=== PATIENT | female | born 1940 | race Caucasian/White ===

== ENCOUNTER 2021-05-23 13:26 | Inpatient (IN) | payer MEDICARE, OTHER, SELFPAY ==
[2021-05-23] VITALS (24 sets, daily range): BP systolic 118–143; BP diastolic 41–97; PULSE 60–116; RESP 15–24; TEMP 36.6; O2SAT 93–99; BMI 28.6
--- NOTE | ~2021-05-23 | XR_ITS ---
EXAMINATION: XR chest 1V DATE: 05/23/2021 14:04 INDICATION: Transient alteration of awareness. TECHNIQUE: A single frontal view of the chest was obtained. COMPARISON: None. FINDINGS: There are airspace opacities at left lung base. There is a diffuse interstitial pattern in the lungs. There are small pleural effusions, left worse than right. No pneumothorax. Cardiomegaly is noted. There are surgical clips overlying left chest. There are multiple left rib fractures. IMPRESSION: 1. Airspace opacities at left lung base, consistent with atelectasis versus pneumonia. 2. Diffuse interstitial pattern in the lungs, consistent with mild pulmonary edema versus chronic gaviota g disease. 3. Small pleural effusions. 4. Cardiomegaly. 5. Age-indeterminate left rib fractures. Reviewed, dictated and finalized at location A. IMPRESSION: 1. Airspace opacities at left lung base, consistent with atelectasis versus pne umonia. 2. Diffuse interstitial pattern in the lungs, consistent with mild pulmonary ed minda versus chronic lung disease. 3. Small pleural effusions. 4. Cardiomegaly. 5. Age-indeterminate left rib fractures.
--- NOTE | ~2021-05-23 | CT_ITS ---
EXAMINATION: CT brain wo con INDICATION: Slurred speech COMPARISON: None TECHNIQUE: Standard unenhanced head CT. The dose-length product (DLP) was 529.67 mGy-cm. The mA was a djusted according to patient size. Iterative reconstruction technique was employed. FINDINGS: There is no acute intraparenchymal hemorrhage. No evidence of mass lesion. No evidence of a cute infarction. There is mild periventricular and subcortical hypodensity probably related to small vessel ischemic disease. There is mild prominence of the sulci and ventricles related to cerebral atr ophy. Intracranial calcified cerebral atherosclerosis is noted. There are no extra-axial collections. There is no mass effect or midline shift. Changes in the globes are likely from ocular lens surgery. The visualized sinuses and mastoid air cells are well aerated. There are multiple lytic lesions invo lving the skull, the skull base on the right, and portions of the visualized C1 ring posteriorly on t he right. IMPRESSION: 1. No acute intracranial abnormality. 2. Age related findings. 3. Multiple lytic lesions involving the skull, skull base and visualized C1 ring, consistent with mal ignancy. These findings were discussed with Dr. Saucedo in the Emergency Department at 1415 hours on 1. Reviewed, dictated and finalized at location A. IMPRESSION: 1. No acute intracranial abnormality. 2. Age related findings. 3. Multiple lytic lesions involving the skull, skull base and visualized C1 rin g, consistent with malignancy. These findings were discussed with Dr. Saucedo in the Emergency Department at 1 415 hours on 05/23/2021.
--- NOTE | ~2021-05-23 | MR_ITS ---
EXAMINATION: MR brain/brain stem wo/w con EXAM DATE: 05/24/2021 18:22 INDICATION: Stroke like symptoms, met breast cancer. Right facial droop. TECHNIQUE: Magnetic resonance imaging (MRI) of the brain/brain stem obtained without contrast. Sagit mary T1, axial diffusion, gradient echo (T2*), T1, T2, FLAIR sequences obtained. Patient was then inj ected with 12 cc intravenous Multihance contrast. Axial and coronal postcontrast T1 weighted sequence s obtained. Correlation is made to head CT 05/23/2021. FINDINGS: There is punctate focus of increased diffusion weighted signal in the right caudate head, c ould be an acute or subacute infarction. This is demonstrated some signal drop on the ADC map, but wo uld be expected to produce left-sided symptoms. There is also a 9 mm region of abnormal signal in the right side of the frontotemporal calvarium, possible osseous metastatic lesion. No intraparenchymal brain mass, acute intracranial hemorrhage or extra-axial collection. No regions of abnormal enhanceme nt. Bilateral cataract surgery. Mild microangiopathy and cerebral atrophy. Flow voids are seen in the cerebral arteries on the T2 weighted sequences consistent with their expected patency. No obstructiv e hydrocephalus. IMPRESSION: 1. Punctate focus of signal abnormality right caudate head, possible acute or subacute infarction. 2. Right calvarial lesion which is possible osseous metastatic disease. 3. Mild age-related intracranial findings. Reviewed, dictated and finalized at location B.
--- NOTE | 2021-05-23 13:47 | ECG_ITS ---
Measurements Intervals [place] Rate: 87 P: [place]: 0 QRS: -9 QRSD: 93 T: 11 QT: 364 QTc: 439 Interpretive Statements ATRIAL FIBRILLATION NONSPECIFIC ST & T-WAVE ABNORMALITY- ANTEROLAT/HIGH LAT LEADS BASELINE ARTIFACT- I, II, AVR, AVL, AVF, V1 ABNORMAL ECG Electronically Signed On 05-23-2021 14:16:07 CDT by Matthew Renee D.O.
--- NOTE | 2021-05-23 13:49 | ED.NEUROSD ---
HPI - Neuro Symptoms/Deficit General Chief Complaint: Neuro Symptoms/Deficit Stated Complaint: ?TIA Time Seen by Provider: 05/23/21 13:47 Source: patient Mode of arrival: EMS Limitations: no limitations History of Present Illness HPI Narrative: Patient is a 80-year-old female complaining of slurred speech and right-sided facial droop, lasted for approximately 1 to 2 minutes, now resolved, started prior to arrival. Patient states she has had a history of multiple TIAs in the past due to her atrial fib. Patient is on Eliquis for atrial fib. Patient denies any headache, dizziness, focal weakness or numbness. Patient denies any chest pain, shortness of breath, abdominal pain, nausea, vomiting, fever or chills. Related Data Home Medications Medication Instructions Recorded Confirmed Caltrate + D3 Plus Minerals 400 unit PO DAILY 05/23/21 apixaban [Eliquis] 5 mg PO BID 05/23/21 bimatoprost [Lumigan] 1 drp EACH EYE DAILY 05/23/21 diltiazem HCl [Cardizem] 240 mg PO DAILY 05/23/21 gabapentin 300 mg PO TID 05/23/21 letrozole [Femara] 2.5 mg PO DAILY 05/23/21 levothyroxine [Synthroid] 112 mcg PO DAILY 05/23/21 losartan 75 mg PO BID 05/23/21 metoprolol tartrate [Lopressor] 50 mg PO Q12H 05/23/21 Allergies Allergy/AdvReac Type Severity Reaction Status Date / Time aspirin Allergy Unknown Verified 05/23/21 15:10 levofloxacin Allergy Unknown Verified 05/23/21 15:10 Sulfa (Sulfonamide Allergy Unknown Verified 05/23/21 15:09 Antibiotics) Review of Systems Review of Systems: All systems reviewed & are unremarkable except as noted in HPI and below Constitutional: Constitutional: Denies body ache(s), Denies chills, Denies excessive sweating, Denies fatigue, Denies fever(s), Denies headache(s), Denies lethargy, Denies malaise, Denies weakness and Denies weight loss Eyes: Eyes: Denies blurry vision, Denies change in vision and Denies loss of vision ENT: Denies dizziness, Denies ear discharge, Denies headache(s), Denies lip swelling, Denies epistaxis, Denies nasal congestion, Denies neck pain, Denies throat swelling and Denies tongue swelling Cardiovascular: Cardiovascular: Denies chest pain, Denies chest pain at rest, Denies chest pain with activity, Denies diaphoresis, Denies rapid heart rate, Denies edema, Denies irregular heart rhythm, Denies lightheadedness, Denies palpitations, Denies dyspnea and Denies dyspnea on exertion Respiratory: Respiratory: Denies chest congestion, Denies cough, Denies hemoptysis, Denies dyspnea and Denies dyspnea on exertion Gastrointestinal: Gastrointestinal: Denies abdominal pain, Denies melena, Denies hematochezia, Denies diarrhea, Denies nausea, Denies vomiting and Denies hematemesis Musculoskeletal: Musculoskeletal: Denies abnormal gait, Denies deformity, Denies joint swelling, Denies limited range of motion, Denies neck pain and Denies numbness Neurologic: Denies Abnormal speech present, Denies abnormal gait, Denies confusion, Denies dizziness, Denies headache(s), Denies focal weakness, Denies loss of vision, Denies numbness, Denies Other visual disturbances, Denies Sensory deficit (Neuro) and Denies weakness Psychiatric: Psychiatric: Denies confusion, Denies depression, Denies auditory hallucinations, Denies homicidal ideation and Denies suicidal ideation Endocrine: Endocrine: Denies cold intolerance, Denies excessive sweating, Denies fatigue, Denies heat intolerance and Denies palpitations Hematologic/Lymphatic: Hematologic/Lymphatic: Denies easy bleeding and Denies easy bruising Allergic/Immunologic: Allergic/Immunologic: Denies lip swelling, Denies throat swelling and Denies tongue swelling PMFSH Comments Past medical history: Hypertension, atrial fib, TIA, hyperlipidemia Family history: Hypertension Social history: Non-smoker, no EtOH use, lives at home with her partner Exam Const: General: cooperative, healthy appearing, comfortable, no acute distress, well developed, alert and awake;
[2021-05-23 14:45] LABS: Basophils Absolute Auto 0.1 K/mm3 (0.0-0.1); Basophils Percent Auto 0.9 % (0.2-1.2); Eosinophils Absolute Auto 0.1 K/mm3 (0-0.3); Hematocrit 32.1 % (37.0-47.0); Hemoglobin 9.7 g/dL (12.0-15.0); Immature Granulocyte Absolute 0.11 K/mm3 (0.00-0.031); Immature Granulocyte Percent A 1.6 % (0-0.5); Lymphocytes Absolute Auto 1.44 K/mm3 (0.9-3.2); Lymphocytes Percent Auto 20.7 % (18.3-44.2); Mean Corpuscular HGB Conc 30.2 g/dl (32-36); Mean Corpuscular Hemoglobin 24.2 pg (26-34); Mean Platelet Volume 9.4 fl (7.4-10.4); Monocytes Absolute Auto 0.8 K/mm3 (0.1-0.6); Monocytes Percent Auto 10.9 % (2.6-8.5); Neutrophils Absolute Auto 4.5 K/mm3 (1.3-6.7); Neutrophils Percent Auto 63.9 % (45.5-73.1); Platelet Count Result 246 k/mm3 (150-375); Red Blood Count 4.01 M/mm3 (4.2-5.4); Red Cell Distribution Width 17.8 % (11.5-14.5)
[2021-05-23 14:59] LABS: INR 2.1; Prothrombin Time 23.3 Seconds (11.1-14.7)
[2021-05-23 15:07] LABS: Anion Gap 8 mmol/L (8-16); Blood Urea Nitrogen 8 mg/dL (7-17); Calcium 8.5 mg/dL (8.4-10.2); Carbon Dioxide 23 mmol/L (22-30); Chloride 105 mmol/L (98-107); Estimated Glomerular Filt Rate > 60; Glucose 91 mg/dL (65-110); Potassium 3.5 mmol/L (3.4-5.0); Sodium 136 mmol/L (137-145)
[2021-05-23 15:22] LABS: Troponin I 0.069 ng/mL (0.000-0.034)
--- NOTE | 2021-05-23 17:15 | PM.IMHP ---
H&P: HPI History of Present Illness Date/Time: 05/23/21 17:15 this is a 80-year-old female patient who has a history of TIAs with atrial fibrillation. The patient was brought to the emergency room for complaints of slurred speech and right-sided facial droop. The patient was hospitalized at [facility] approximately 1 month ago and had a full workup. The patient stated that she had an echo and an MRI she believes last month. Who the patient's symptoms have totally resolved and she no longer has any focal weakness or numbness. The daughter is at the bedside. Chest x-ray was read as airspace opacities at the left lung base, consistent with atelectasis versus pneumonia. Diffuse interstitial pattern and the lungs, consistent with mild pulmonary edema versus chronic lung disease. Small pleural effusion. Cardiomegaly. Age indeterminate left rib fractures. Head CT was read as no acute intracranial abnormality. Age-related findings. Multiple lytic lesions including the skull, skull base and visualized C1 ring, consistent with malignancy. The patient has a history having breast cancer and has been receiving chemotherapy. She has had a lumpectomy in multiple lymph nodes removed. We discussed the lytic lesions in the patient stated she was not aware of this and she recently had a bone scan at [facility] in [place]. I did consult Neurology and will continue with her anticoagulation. The patient is being admitted to observation status on the date of service of 05/23/2020 Chief Complaint: Slurred speech Review of Systems Review of Systems: All systems reviewed & are unremarkable except as noted in HPI and below Constitutional: Constitutional: Reports as per HPI and Reports no additional constitutional complaints Eyes: Eyes: Reports as per HPI and Reports no additional eye complaints ENT: Reports system reviewed and no additional complaints, except as documented and Reports Normal hearing present Cardiovascular: Cardiovascular: Reports no additional cardiovascular complaints Respiratory: Respiratory: Reports no additional respiratory complaints and Reports no additional respiratory complaints Gastrointestinal: Gastrointestinal: Reports as per HPI and Reports no additional gastrointestinal complaints Musculoskeletal: Musculoskeletal: Reports no additional musculoskeletal complaints Integumentary/Breasts: Skin/Breast: Reports system reviewed and no additional complaints, except as docu and Reports as per HPI Neurologic: Reports system reviewed and no additional complaints, except as documented, Reports as per HPI and Reports Normal hearing present Psychiatric: Psychiatric: Reports no additional psychiatric complaints and Reports as per HPI Endocrine: Endocrine: Reports no additional endocrine complaints Hematologic/Lymphatic: Hematologic/Lymphatic: Reports no additional hematologic/lymphatic complaints Allergic/Immunologic: Allergic/Immunologic: Reports no additional allergic/immunologic complaints [facility] Past Medical History Medical History (Updated 05/23/21 @ 17:32 by Mery Kimbrough NP) Atrial fibrillation Chemotherapy-induced neuropathy Glaucoma HTN (hypertension) with goal to be determined Hypothyroidism Metastatic breast cancer TIA (transient ischemic attack) Surgical History Surgical History (Updated 05/23/21 @ 17:35 by Mery Kimbrough NP) H/O colonoscopy with polypectomy H/O lumpectomy Left breast H/O: hysterectomy History of lymph node dissection of axilla Left side Hx of cholecystectomy S/P tonsillectomy and adenoidectomy Family History Family History (Updated 05/23/21 @ 17:39 by Mery Kimbrough NP) Mother Uterine cancer Father Acute myocardial infarction Meds Home Medications and Allergies Home Medications Medication Instructions Recorded Confirmed Type Caltrate + D3 Plus Minerals 400 unit PO DAILY 05/23/21 History apixaban [Eliquis] 5 mg PO BID 05/23/21 H
[2021-05-23 19:45] LABS: Troponin I 0.059 ng/mL (0.000-0.034)
--- NOTE | 2021-05-23 20:14 | ADMGEN ---
This patient, Lyndasy Ybarra, was admitted to IMU Room 201-01 on 05/23/21 at 1999. Patient/family oriented to hospital policies and general routines including ID bracelet, bed and alarms, visiting hours, pain management, procedures, bathroom and other care routines, personal items, smoking policy, room service/diet, and visiting hours. Information on how to activate the Rapid Response Team has been discussed. Patient/Family are encouraged to report perceived risks to care and to ask questions if they do not understand what they are told or what they should do.
[2021-05-23] MEDS: APIXABAN 5 MG TABLET PO (23:32)
[2021-05-23] MEDS: GABAPENTIN 300 MG CAPSULE PO (23:32)
[2021-05-23] MEDS: METOPROLOL TARTRATE 50 MG TAB PO (23:33)
[2021-05-23] MEDS: LOSARTAN POTASSIUM 50 MG TABLET PO (23:36)
[2021-05-24] VITALS (16 sets, daily range): BP systolic 108–134; BP diastolic 52–84; PULSE 57–133; RESP 18–20; TEMP 36.2–36.6; O2SAT 94–96; BMI 28.6
--- NOTE | 2021-05-24 | ECHOL_ITS ---
Patient Info Name: Lyndsay Ybarra Age: 80 years : 1940 Gender: Female Ht: 59 in Wt: 141 lbs BSA: 1.65 m2 HR: 98 bpm BP: 110 / 63 mmHg Heart Rhythm: Atrial Fibrillation Technical Quality: Good Exam Date: 05/24/2021 3:26 PM Exam Location: [facility] Pulmonary Exam Room: 201 Patient Status: Inpatient Admit Date: 05/24/2021 Staff Ordering Physician: Nichole Fowler PA-C Certified Health Education Specialist: Ayla Long RDCS Attending Provider: Nichole Fowler PA-C Referring Physician: Malcolm ELLIOTT; Exam Type: CA echo limited Study Info Indications - eval wall motion abnormality Limited two-dimensional transthoracic echocardiogram is performed. Summary 1. Left ventricular chamber dimension is normal. 2. Left ventricular systolic function is normal, estimated at 60-65%. 3. There is mildly increased left ventricular wall thickness. 4. Left atrial chamber dimension is moderately enlarged. 5. There is mild aortic valve sclerosis. Left Ventricle Left ventricular chamber dimension is normal. Left ventricular systolic function is normal, estimated at 60-65%. There is mildly increased left ventricular wall thickness. Right Ventricle Right ventricular chamber dimension is normal. Right ventricular systolic function is normal. Left Atria Left atrial chamber dimension is moderately enlarged. Right Atria Right atrial chamber dimension is normal. Aortic Valve The aortic valve is trileaflet. There is mild aortic valve sclerosis. Pulmonic Valve The pulmonic valve is normal. Mitral Valve The mitral valve has normal leaflets. Tricuspid Valve The tricuspid valve leaflets are normal. Pericardium/Pleural The pericardium appears normal. There is trivial pericardial effusion. Aorta The aortic root size at the sinus of Valsalva is normal. Ventricles Name Value Normal LV Dimensions 2D/MM IVS Diastolic Thickness (2D) 0.9 cm 0.6-1.0 LVID Diastole (2D) 4.6 cm 3.8-5.2 LVIW Diastolic Thickness (2D) 1.0 cm 0.6-0.9 LVID Systole (2D) 3.0 cm 2.2-3.5 LV Mass (2D Cubed) 155.65 g 67.00-162.00 LV Mass Index (2D Cubed) 94 g/m2 43-95 Relative Wall Thickness (2D) 0.44 LV Fractional Shortening/Ejection Fraction 2D/MM LV Fractional Shortening (2D) 35 % 27-45 LV EF (2D Teicholz) 64 % 54-74 LV Diastolic Volume (4C MOD) 75 ml LV EF (4C MOD) 64 % LV Diastolic Volume (2C MOD) 54 ml LV EF (2C MOD) 67 % LV Diastolic Volume (BP MOD) 64 ml 46-106 LV Diastolic Volume Index (BP MOD) 39 ml/m2 29-61 LV Systolic Volume (BP MOD) 23 ml 14-42 LV Systolic Volume Index (BP MOD) 14 ml/m2 8-24 LV EF (BP MOD) 65 % 54-74 LV Diastolic Length (4C) 7.0 cm LV Systolic Length (4C) 6.3 cm
[2021-05-24] MEDS: ACETAMINOPHEN 325 MG TABLET 650 MG PO ×2 (00:23→20:48)
[2021-05-24 00:24] LABS: Troponin I 0.085 ng/mL (0.000-0.034)
[2021-05-24 05:15] LABS: Basophils Absolute Auto 0.1 K/mm3 (0.0-0.1); Basophils Percent Auto 0.8 % (0.2-1.2); Eosinophils Absolute Auto 0.2 K/mm3 (0-0.3); Eosinophils Percent Auto 3.7 % (0-4.4); Hematocrit 29.2 % (37.0-47.0); Hemoglobin 8.8 g/dL (12.0-15.0); Immature Granulocyte Absolute 0.08 K/mm3 (0.00-0.031); Immature Granulocyte Percent A 1.3 % (0-0.5); Lymphocytes Absolute Auto 1.64 K/mm3 (0.9-3.2); Lymphocytes Percent Auto 27.4 % (18.3-44.2); Mean Corpuscular HGB Conc 30.1 g/dl (32-36); Mean Corpuscular Hemoglobin 23.7 pg (26-34); Mean Corpuscular Volume 78.7 fl (80-100); Mean Platelet Volume 9.8 fl (7.4-10.4); Monocytes Absolute Auto 0.8 K/mm3 (0.1-0.6); Monocytes Percent Auto 13.4 % (2.6-8.5); Neutrophils Absolute Auto 3.2 K/mm3 (1.3-6.7); Neutrophils Percent Auto 53.4 % (45.5-73.1); Platelet Count Result 217 k/mm3 (150-375); Red Blood Count 3.71 M/mm3 (4.2-5.4); Red Cell Distribution Width 17.6 % (11.5-14.5)
[2021-05-24 05:40] LABS: Magnesium 1.5 mg/dL (1.6-2.3)
[2021-05-24] MEDS: LEVOTHYROXINE SODIUM 112 MCG TABLET PO (06:23)
[2021-05-24 08:15] LABS: Free T4 Free Thyroxine Reflex 1.47 ng/dL (0.78-2.19)
[2021-05-24 08:53] LABS: Anion Gap 7 mmol/L (8-16); Blood Urea Nitrogen 8 mg/dL (7-17); Calcium 8.5 mg/dL (8.4-10.2); Carbon Dioxide 22 mmol/L (22-30); Chloride 105 mmol/L (98-107); Estimated Glomerular Filt Rate > 60; Glucose 79 mg/dL (65-110); Potassium 3.5 mmol/L (3.4-5.0); Sodium 134 mmol/L (137-145)
[2021-05-24 09:01] LABS: Iron 19 ug/dL (37-170)
[2021-05-24 09:03] LABS: Transferrin 193 mg/dL (206-381)
[2021-05-24 09:10] LABS: Percent Iron Saturation 7 % (20-50)
[2021-05-24] MEDS: ONDANSETRON HCL ODT 4 MG TABLET PO (09:35)
[2021-05-24] MEDS: APIXABAN 5 MG TABLET PO (09:50)
[2021-05-24] MEDS: GABAPENTIN 300 MG CAPSULE PO ×3 (09:51→19:01)
[2021-05-24] MEDS: LOSARTAN POTASSIUM 50 MG TABLET PO ×2 (09:52→19:01)
[2021-05-24] MEDS: METOPROLOL TARTRATE 50 MG TAB PO ×2 (09:53→20:46)
[2021-05-24] MEDS: LETROZOLE (*CHEMO) 2.5 MG TABLET PO (09:58)
[2021-05-24 10:03] LABS: Folic Acid 5.5 ng/mL (2.76->20)
--- NOTE | 2021-05-24 11:03 | PM.IMPN ---
Progress Note: A&P Assessment and Plan (1) TIA (transient ischemic attack): Code(s): G45.9 - Transient cerebral ischemic attack, unspecified Status: Chronic Assessment and Plan: Patient is a 80-year-old woman with a history of metastatic breast cancer with bony lesions, who presented emergency room with right-sided facial droop and slurred speech. Patient had similar symptoms 1 month ago and was seen at [facility] in [place]. While she was there she was found to have atrial fibrillation and started on anticoagulation with Eliquis. They assume the atrial fibrillation caused her TIA and she did not have any residual defects. She was discharged home to continue taking Eliquis. She states she was not started on aspirin because aspirin ?irritates her stomach?. She does not take any an acids. Patient states this episode of right-sided facial droop and slurred speech lasted 5-10 minutes and resolved. She has not had any more recurrence of these episodes. I plan to start her on aspirin 81 mg to prevent further TIA Right now I will not start aspirin because she has iron deficiency anemia and was told she had some maroon-colored stool this morning. Will proceed with workup for GI bleeding I am trying to obtain records from [facility] with her results from her hospitalization 1 month ago. Otherwise at this time she does not wish to have further workup repeated since her symptoms have resolved. Neurology was consulted and I appreciate their input. PT OT ordered Continue monitoring neuro symptoms. (2) Atrial fibrillation: Code(s): I48.91 - Unspecified atrial fibrillation Status: Chronic Assessment and Plan: Patient's heart rate has been in RVR this morning because her diltiazem came a little late. After taking her medication it is been in the 100s to 110s Eliquis will be placed on hold due to signs of GI bleeding and iron deficiency anemia Will order SCDs at this time Continue rate control Consider cardiology consult if she continues to be in AFib RVR needs further adjustments Continue monitoring (3) Elevated troponin: Code(s): R77.8 - Other specified abnormalities of plasma proteins Status: Acute Assessment and Plan: Troponins are elevating at 0.069 up to 0.110. This could be secondary to AFib RVR verses TIA. She denies any chest pain, shortness of breath, diaphoresis, or other symptoms since coming into the hospital. 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 (4) Anemia: Code(s): D64.9 - Anemia, unspecified Status: Acute Assessment and Plan: Iron deficiency anemia on labs, microcytic anemia with Hgb 8.8/29.2%. Found to have maroon stools this morning by staff Concerns for GI bleeding from starting eliquis recently Will start Pantoprozole 40 mg Q12hrs GI consulted IV Venofer ordered 300 mg x3 Continue monitoring H&H Q8hrs to ensure she does not need a transfusion. She has required a transfusion within the last 1 month by her oncologist. Keep Hgb > 7. (5) Metastatic breast cancer: Code(s): C50.919 - Malignant neoplasm of unspecified site of unspecified female breast Status: Chronic Assessment and Plan: The patient sees an oncologist at [facility] in [place]. She is aware of metastatic breast cancer with bony mets. Will have her continue to follow up with her Onocologist (6) HTN (hypertension) with goal to be determined: Code(s): I10 - Essential (primary) hypertension Sta
[2021-05-24] MEDS: PANTOPRAZOLE 40 MG TABLET PO ×2 (11:22→20:47)
--- NOTE | 2021-05-24 12:39 | WPDNEURCNPN ---
Assessment and Plan Additional Plan considering the abnormal scan patient will benefit from the oncology consultation and further studies like MRI at this stage no other intervention neurologically till the oncologists seizures the patient Consult date: 05/24/21 HPI: Lyndsay Ybarra is a 80 year old female has been admitted to [facility] through the emergency room for the complaint of slurred speech with right-sided facial droop patient has been hospitalized at [facility] about a month ago and had complete workup done she had an echocardiogram an MRI her symptomatology had completely resolved she was left with no focal weakness or numbness her x-ray of the chest hair was noted as atelectasis versus pneumonia with diffuse interstitial pattern in the lung consistent with mild pulmonary edema versus the chronic lung disease indeterminate left rib fractures negative CT scan of the head except multiple lytic lesions including skull his skull base and C1 ring consistent with the malignancy patient obviously has a history of breast cancer and has been receiving the chemotherapy she has had a lumpectomy in multiple lymph nodes removal patient was unaware of these lytic lesions she recently had a bone scan at [facility] in [place] Review of Systems Review of Systems: All systems reviewed & are unremarkable except as noted in HPI and below PMFSH Past Medical History Medical History Atrial fibrillation Chemotherapy-induced neuropathy Glaucoma HTN (hypertension) with goal to be determined Hypothyroidism Metastatic breast cancer TIA (transient ischemic attack) Surgical History Surgical History H/O colonoscopy with polypectomy H/O lumpectomy Left breast H/O: hysterectomy History of lymph node dissection of axilla Left side Hx of cholecystectomy S/P tonsillectomy and adenoidectomy Family History Family History Mother Uterine cancer Father Acute myocardial infarction Sibling Acute myocardial infarction Esophageal cancer Social History Social History Smoking packs per day: 0 Smoking cigarettes per day: 0.0 Years smoked: 3 Smoking pack-years: 0.00 Smoking status: Former smoker Tobacco type: cigarettes Second hand tobacco smoke exposure: Yes Smoking end date: 07/28/80 Alcohol intake: never Substance use: never Substance use type: does not use Spiritual care concerns: No Meds Home Medications and Allergies Home Medications Medication Instructions Recorded Confirmed Type Caltrate + D3 Plus Minerals 800 unit PO DAILY 05/23/21 05/23/21 History apixaban [Eliquis] 5 mg PO BID 05/23/21 05/23/21 History bimatoprost [Lumigan] 1 drp EACH EYE DAILY 05/23/21 05/23/21 History diltiazem HCl [Cardizem] 240 mg PO DAILY 05/23/21 05/23/21 History gabapentin 300 mg PO TID 05/23/21 05/23/21 History letrozole [Femara] 2.5 mg PO DAILY 05/23/21 05/23/21 History levothyroxine [Synthroid] 112 mcg PO DAILY 05/23/21 05/23/21 History losartan 50 mg PO BID 05/23/21 05/23/21 History metoprolol tartrate [Lopressor] 50 mg PO Q12H 05/23/21 05/23/21 History ondansetron 4 mg PO Q8H PRN 05/23/21 05/23/21 History oxycodone 2.5 mg PO Q4-6H PRN 05/23/21 05/23/21 History Allergies Allergy/AdvReac Type Severity Reaction Status Date / Time aspirin Allergy Unknown Verified 05/23/21 15:10 levofloxacin Allergy Unknown Verified 05/23/21 15:10 Sulfa (Sulfonamide Allergy Unknown Verified 05/23/21 15:09 Antibiotics) Vital Signs Vital Signs - 24 hr 05/23/21 13:37 05/23/21 15:01 05/23/21 15:09 Temperature 36.6 C Pulse Rate 60 92 98 Respiratory Rate 18 18 18 Blood Pressure 136/63 132/72 Pulse Oximetry 96 99 05/23/21 15:10 05/23/21 15:16 05/23/21 15:17 Temperature Pulse Rate 98 82 90
[2021-05-24] MEDS: MAGNESIUM SULFATE 3GM/D5W100ML 3 GM/100 ML BAG IVPB (13:12)
--- NOTE | 2021-05-24 13:47 | PC.NURSE ---
On 05/24/21, the student, [Bart Spencer], provided care and completed [facility] hospital documentation on this patient. I have reviewed the student's documentation and agree with the findings.
[2021-05-24 14:03] LABS: Hematocrit 32.9 % (37.0-47.0); Hemoglobin 9.6 g/dL (12.0-15.0)
--- NOTE | 2021-05-24 17:01 | WPDGICN ---
Assessment and Plan Assessment and plan (1) Rectal bleeding: Code(s): K62.5 - Hemorrhage of anus and rectum Status: Acute Assessment and Plan: most likely from new diagnosis of colon cancer about a month ago by Dr Cabrera, hb low but stable also has metastatic breast cancer with bone involvement no need to repeat scopes family says that she is referred to doctor at [facility] and probably will modify chemotherapy she has not had colon surgery yet [place], call if questions (2) Iron deficiency anemia: Code(s): D50.9 - Iron deficiency anemia, unspecified Status: Acute Assessment and Plan: agree with iv iron monitor h/h (3) Colon adenocarcinoma: Code(s): C18.9 - Malignant neoplasm of colon, unspecified Status: Acute Assessment and Plan: recent colonoscopy at [place] (4) TIA (transient ischemic attack): Code(s): G45.9 - Transient cerebral ischemic attack, unspecified Status: Chronic Assessment and Plan: resolved, neurology on board (5) Atrial fibrillation: Code(s): I48.91 - Unspecified atrial fibrillation Status: Chronic (6) Metastatic breast cancer: Code(s): C50.919 - Malignant neoplasm of unspecified site of unspecified female breast Status: Chronic Assessment and Plan: with bone lytic lesions oncology (7) Elevated troponin: Code(s): R77.8 - Other specified abnormalities of plasma proteins Status: Acute GI Consult Note Consult date/time: 05/24/21 17:01 Reason for consult: rectal bleeding, JOSLYN HPI: Lyndsay Ybarra is a 80 year old female with history of TIAs with atrial fibrillation on eliquis for last few months. She came here with new onset of slurred speech and right-sided facial droop that resolved now, evaluated by neurology. Also noted small amount of marroon stool yesterday and today, she has iron deficiency anemia with hb 8.5-9. She has a known history of metastatic breast cancer to bones already seeing by oncology, also a month ago she was admitted at [facility] and Dr Cabrera performed colonoscopy and found adenocarcinoma of colon (confirmed by family member who is a physician by phone). CT scan reviewed and showed no acute intracranial abnormality, multiple lytic lesions involving the skull, skull base and visualized C1 ring, consistent with malignancy. She is comfortable now with another family member at bedside, also getting iron iv infusion. Review of Systems Constitutional: Constitutional: Denies chills Eyes: Eyes: Reports no additional eye complaints ENT: Reports Normal hearing present Cardiovascular: Cardiovascular: Denies chest pain Respiratory: Respiratory: Denies dyspnea Gastrointestinal: Gastrointestinal: Denies abdominal pain Genitourinary: Genitourinary: Denies hematuria Musculoskeletal: Musculoskeletal: Reports no additional musculoskeletal complaints Neurologic: Comments: as above Psychiatric: Psychiatric: Reports no additional psychiatric complaints [facility] Past Medical History Medical History (Updated 05/24/21 @ 17:06 by Phillip Nguyen MD) Atrial fibrillation Chemotherapy-induced neuropathy Colon adenocarcinoma Glaucoma HTN (hypertension) with goal to be determined Hypothyroidism Iron deficiency anemia Metastatic breast cancer Rectal bleeding TIA (transient ischemic attack) Surgical History Surgical History H/O colonoscopy with polypectomy H/O lumpectomy Left breast H/O: hysterectomy History of lymph node dissection of axilla Left side Hx of cholecystectomy S/P tonsillectomy and adenoidectomy Family History Family History Mother Uterine cancer Father Acute myocardial infarction Sibling Acute myocardial infarction Esophageal cancer Social History Social History (Reviewed 05/24/21 @ 12:42 by Nikunj Kaiser
[2021-05-24] MEDS: LATANOPROST 0.005% OP SOLN 2.5 ML BTL 1 DROP EACH EYE (20:38)
[2021-05-24 21:21] LABS: IFOB Positive Control Positive; Immunochemical Fecal Occult Bl Positive (N)
[2021-05-24 22:16] LABS: Hematocrit 29.2 % (37.0-47.0); Hemoglobin 8.9 g/dL (12.0-15.0)
[2021-05-25] VITALS (10 sets, daily range): BP systolic 89–110; BP diastolic 50–69; PULSE 65–107; RESP 18–22; TEMP 36.4–37.1; O2SAT 92–98
[2021-05-25 05:18] LABS: Hematocrit 31.1 % (37.0-47.0); Mean Corpuscular HGB Conc 28.9 g/dl (32-36); Mean Corpuscular Hemoglobin 23.7 pg (26-34); Mean Corpuscular Volume 82.1 fl (80-100); Mean Platelet Volume 9.8 fl (7.4-10.4); Platelet Count Result 212 k/mm3 (150-375); Red Blood Count 3.79 M/mm3 (4.2-5.4); Red Cell Distribution Width 17.9 % (11.5-14.5); White Blood Count 6.8 K/mm3 (4.5-10.0)
[2021-05-25 05:39] LABS: Anion Gap 5 mmol/L (8-16); Blood Urea Nitrogen 10 mg/dL (7-17); Calcium 8.6 mg/dL (8.4-10.2); Carbon Dioxide 27 mmol/L (22-30); Chloride 103 mmol/L (98-107); Estimated Glomerular Filt Rate > 60; Glucose 75 mg/dL (65-110); Magnesium 2.3 mg/dL (1.6-2.3); Potassium 3.2 mmol/L (3.4-5.0); Sodium 135 mmol/L (137-145)
[2021-05-25] MEDS: LEVOTHYROXINE SODIUM 112 MCG TABLET PO (06:31)
[2021-05-25] MEDS: PANTOPRAZOLE 40 MG TABLET PO (08:57)
[2021-05-25] MEDS: LOSARTAN POTASSIUM 50 MG TABLET PO (08:57)
[2021-05-25] MEDS: METOPROLOL TARTRATE 50 MG TAB PO (08:58)
[2021-05-25] MEDS: GABAPENTIN 300 MG CAPSULE PO ×2 (08:58→12:21)
[2021-05-25] MEDS: LETROZOLE (*CHEMO) 2.5 MG TABLET PO (08:58)
[2021-05-25] MEDS: ACETAMINOPHEN 325 MG TABLET 650 MG PO (09:02)
[2021-05-25] MEDS: POTASSIUM CHLORIDE 20 MEQ TABLET 60 MEQ PO (12:20)
--- NOTE | 2021-05-25 13:45 | PM.DS ---
DS: Admitting Diagnosis Discharge Date 05/25/21 Admitting Diagnosis Stroke like symptoms DS: Discharge Diagnosis Discharge Diagnosis (1) TIA (transient ischemic attack): Code(s): G45.9 - Transient cerebral ischemic attack, unspecified Status: Chronic Assessment and Plan: Patient is a 80-year-old woman with a history of metastatic breast cancer with bony lesions, who presented emergency room with right-sided facial droop and slurred speech. Patient had similar symptoms 1 month ago and was seen at [facility] in [place]. While she was there she was found to have atrial fibrillation and started on anticoagulation with Eliquis. They assume the atrial fibrillation caused her TIA and she did not have any residual defects. She was discharged home to continue taking Eliquis. She states she was not started on aspirin because aspirin ?irritates her stomach?. She does not take any an acids. Patient states this episode of right-sided facial droop and slurred speech lasted 5-10 minutes and resolved. She has not had any more recurrence of these episodes. Results from [facility] 1 month ago did show she had an acute stroke at that time. She had a CTA Head and Neck which showed no significant stenosis of her arteries. Echo showed normal EF. MRI here showed Punctate focus of signal abnormality right caudate head, possible acute or subacute infarction. Right calvarial lesion which is possible osseous metastatic disease. Mild age-related intracranial findings. Will start her on aspirin 81 mg to prevent further TIA After talking with the patients daughter Deb who is a Pediatric Oncologist, we discussed the patients Current Oncologist at [facility] has been monitoring her H&H regularly with her being on Eliquis and she was recently diagnosed with a Colon mass. Her Hgb has been stable at 9 with her prior labs. Here in the hospital her H&H has been stable at 9 as well. Her stool occult was positive for blood which I told her daughter. They have plans to see oncologist Friday and have labs rechecked. Will continue Eliquis at this time, Add Aspirin 81 mg to prevent further TIA and add Pantoprozole daily as well. The patient and daughter understand and agree with the plan. All questions answered. Return to ER warnings given for any new or worsening bleeding, lightheadedness, syncope or any other concerns. (2) Anemia: Code(s): D64.9 - Anemia, unspecified Status: Acute Assessment and Plan: Iron deficiency anemia on labs, microcytic anemia with Hgb 9.0/31%. Given IV Venofer ordered 300 mg x3 and discharge on Ferrous Sulfate GI evaluated and since she just had work up at [facility] there is no need for further scopes at this time. (3) Atrial fibrillation: Code(s): I48.91 - Unspecified atrial fibrillation Status: Chronic Assessment and Plan: Heart rate controlled. Continue Eliquis (4) Elevated troponin: Code(s): R77.8 - Other specified abnormalities of plasma proteins Status: Acute Assessment and Plan: Troponins are elevating at 0.069 up to 0.110. This could be secondary to AFib RVR verses TIA/CVA. She denies any chest pain, shortness of breath, diaphoresis, or other symptoms since coming into the hospital. She does have a conversion developer at [facility] which she is seeing for her atrial fibrillation (5) Metastatic breast cancer: Code(s): C50.919 - Malignant neoplasm of unspecified site of unspecified female breast Status: Chronic Assessment and Plan: The patient sees an oncologist at [facility] in [place]. She is aware of metastatic breast cancer with bony mets. Will have her continue to follow up with her Onocologist
[2021-05-25 14:41] LABS: Hematocrit 28.6 % (37.0-47.0); Hemoglobin 8.6 g/dL (12.0-15.0)
== END 2021-05-25 16:18 | disposition home health service (06) | DRG 69 ==
LOC: ANHED 15:53 → ANHIMU 18:35
PROVIDERS: Emergency Medicine; Internal Medicine; Nurse Practitioner; Physician Assistant; Admitting Provider Family Medicine; Emergency Provider Emergency Medicine; PCP Family Medicine; Visit Provider Internal Medicine
DX: G45.9 Transient cerebral ischemic attack, unspecified (principal); I48.20 Chronic atrial fibrillation, unspecified; C79.51 Secondary malignant neoplasm of bone; K62.5 Hemorrhage of anus and rectum; C78.5 Secondary malignant neoplasm of large intestine and rectum; C50.919 Malignant neoplasm of unspecified site of unspecified female breast; D50.9 Iron deficiency anemia, unspecified; I10 Essential (primary) hypertension; E03.9 Hypothyroidism, unspecified; G62.0 Drug-induced polyneuropathy; T45.1X5A Adverse effect of antineoplastic and immunosuppressive drugs, initial encounter; H40.9 Unspecified glaucoma; E78.5 Hyperlipidemia, unspecified; E83.42 Hypomagnesemia; R29.700 NIHSS score 0; Z79.01 Long term (current) use of anticoagulants; Z90.49 Acquired absence of other specified parts of digestive tract; Z90.710 Acquired absence of both cervix and uterus; Z87.891 Personal history of nicotine dependence; Z86.73 Personal history of transient ischemic attack (TIA), and cerebral infarction without residual deficits
CPT/HCPCS: 36415; 70450; 70553; 71045; 80048; 82274; 82607; 82728; 82746; 83540; 83550; 83735; 84439; 84443; 84466; 84480; 84484; 85014; 85018; 85025; 85027; 85610; 85730; 93005; 93308; 96365; 96366; 96375; 97110; 97163; 97165; 97530; 97535; 99285; A9270; A9577; G0378; J1756; J3475